=== PATIENT | male | born 1990 | race Caucasian/White ===

== ENCOUNTER 2017-08-27 05:27 | Emergency (ER) | payer MEDICAID ==
[~2017-08-27] VITALS: Ht 172.7 cm; Wt 75.0 kg
[~2017-08-27 05:27] MED LIST: ALBU8.5H4 IH; CEPH500C5 PO; HYDR30CR79 TP; IBUP-1985 PO; NAPR-56 PO; ONDA8TAB9 PO
[2017-08-27 05:52] VITALS: BP 138/88
== END 2017-08-27 05:55 ==
LOC: ER 05:27
DX: S01.81XA Laceration without foreign body of other part of head, initial encounter (principal); S31.114A Laceration without foreign body of abdominal wall, left lower quadrant without penetration into peritoneal cavity, initial encounter; S41.111A Laceration without foreign body of right upper arm, initial encounter; F15.129 Other stimulant abuse with intoxication, unspecified; F12.10 Cannabis abuse, uncomplicated; Z60.2 Problems related to living alone; X58.XXXA Exposure to other specified factors, initial encounter; Y93.89 Activity, other specified; Y92.89 Other specified places as the place of occurrence of the external cause; Y99.8 Other external cause status
CPT/HCPCS: 99283; A6255

== ENCOUNTER 2018-08-05 13:26 | Emergency (ER) | payer MEDICAID ==
[~2018-08-05] VITALS: Ht 172.7 cm; Wt 81.8 kg
[~2018-08-05 13:26] MED LIST changes: -CEPH500C5 PO; +IBUP-1986 PO
[2018-08-05 13:41] VITALS: BP 121/58
[2018-08-05] MEDS ORDERED: METH-360 PO (14:18)
[2018-08-05] MEDS ORDERED: IBUP-1985 PO (14:18)
[2018-08-05] MEDS ORDERED: orphenadrine citrate 60mg/2ml inj. IM ONE (14:20)
[2018-08-05] MEDS ORDERED: ketorolac tromethamine 15mg/ml inj. IM ONE (14:20)
== END 2018-08-05 14:39 | disposition home or self-care (01) ==
LOC: ER 13:26
DX: M54.5 Low back pain (principal); F12.90 Cannabis use, unspecified, uncomplicated; F15.90 Other stimulant use, unspecified, uncomplicated; Z79.899 Other long term (current) drug therapy; Z56.0 Unemployment, unspecified; X50.9XXA Other and unspecified overexertion or strenuous movements or postures, initial encounter; Y93.H2 Activity, gardening and landscaping; Y92.096 Garden or yard of other non-institutional residence as the place of occurrence of the external cause; Y99.8 Other external cause status
CPT/HCPCS: 96372; 99283; J1885; J2360

== ENCOUNTER 2019-05-12 12:33 | Emergency (ER) | payer MEDICAID ==
[~2019-05-12] VITALS: Ht 172.7 cm; Wt 61.0 kg
[~2019-05-12 12:33] MED LIST changes: +METH-360 PO
[2019-05-12] MEDS ORDERED: ibuprofen tablet 400 MG TABLET PO ONE (15:30)
[2019-05-12 16:26] VITALS: BP 111/65
== END 2019-05-12 16:32 | disposition home or self-care (01) ==
LOC: ER 12:34
DX: M25.511 Pain in right shoulder (principal); F32.9 Major depressive disorder, single episode, unspecified; F41.9 Anxiety disorder, unspecified; F12.10 Cannabis abuse, uncomplicated; F15.10 Other stimulant abuse, uncomplicated; Z86.2 Personal history of diseases of the blood and blood-forming organs and certain disorders involving the immune mechanism; Z79.899 Other long term (current) drug therapy
CPT/HCPCS: 73030; 99283

== ENCOUNTER 2020-02-16 09:59 | Emergency (ER) | payer MEDICAID ==
[~2020-02-16] VITALS: Ht 172.7 cm; Wt 62.1 kg
[2020-02-16 10:03] VITALS: BP 102/58
[2020-02-16] MEDS ORDERED: azithromycin 250mg tablet PO ONE (11:15)
[2020-02-16] MEDS ORDERED: CefTRIAXone 250MG IM Kit w/LIDOcaine IM ONE (11:15)
== END 2020-02-16 11:42 | disposition home or self-care (01) ==
LOC: ER 10:00
DX: Z11.3 Encounter for screening for infections with a predominantly sexual mode of transmission (principal); R30.0 Dysuria; F41.9 Anxiety disorder, unspecified; F32.9 Major depressive disorder, single episode, unspecified; F12.90 Cannabis use, unspecified, uncomplicated; F15.90 Other stimulant use, unspecified, uncomplicated; Z86.2 Personal history of diseases of the blood and blood-forming organs and certain disorders involving the immune mechanism; Z72.89 Other problems related to lifestyle; Z56.0 Unemployment, unspecified; Z79.899 Other long term (current) drug therapy
CPT/HCPCS: 36415; 87491; 87591; 96372; 99283; J0696

== ENCOUNTER 2020-07-13 10:55 | Emergency (ER) | payer MEDICAID, OTHER ==
[~2020-07-13] VITALS: Ht 172.7 cm; Wt 61.4 kg
[2020-07-13 11:00] VITALS: BP 123/75
== END 2020-07-13 11:45 | disposition home or self-care (01) ==
LOC: ER 10:55
DX: B20 Human immunodeficiency virus [HIV] disease (principal); F41.9 Anxiety disorder, unspecified; F32.9 Major depressive disorder, single episode, unspecified; F12.90 Cannabis use, unspecified, uncomplicated; F15.90 Other stimulant use, unspecified, uncomplicated; Z86.2 Personal history of diseases of the blood and blood-forming organs and certain disorders involving the immune mechanism; Z72.89 Other problems related to lifestyle; Z56.0 Unemployment, unspecified; Z79.899 Other long term (current) drug therapy
CPT/HCPCS: 99281

== ENCOUNTER 2020-10-12 07:53 | Emergency (ER) | payer SELFPAY ==
[~2020-10-12] VITALS: Ht 172.7 cm; Wt 72.7 kg
[2020-10-12 08:23] VITALS: BP 112/78
== END 2020-10-12 08:26 ==
LOC: ER 07:54
DX: S20.211A Contusion of right front wall of thorax, initial encounter (principal); F12.90 Cannabis use, unspecified, uncomplicated; F15.90 Other stimulant use, unspecified, uncomplicated; F41.9 Anxiety disorder, unspecified; F32.9 Major depressive disorder, single episode, unspecified; Z86.2 Personal history of diseases of the blood and blood-forming organs and certain disorders involving the immune mechanism; Z72.89 Other problems related to lifestyle; Z56.0 Unemployment, unspecified; Z79.899 Other long term (current) drug therapy; W33.01XA Accidental discharge of shotgun, initial encounter; Y93.89 Activity, other specified; Y92.89 Other specified places as the place of occurrence of the external cause; Y99.8 Other external cause status
CPT/HCPCS: 71045; 93005; 99283

== ENCOUNTER 2020-12-16 06:50 | Emergency (ER) | payer MEDICAID ==
[~2020-12-16] VITALS: Ht 172.7 cm; Wt 59.1 kg
[2020-12-16] MEDS ORDERED: clindamycin 600mg/D5W 50ml 50 ML IV ONE (07:50)
[2020-12-16] MEDS ORDERED: ketorolac trometh. 30mg/ml inj. IV ONE (07:50)
[2020-12-16] MEDS ORDERED: TETanus/Pertussis (Acell)/Diphther VAC/PF (Tdap-Adult) 0.5ml syringe IMVAC ONE (07:50)
[2020-12-16] MEDS ORDERED: normal saline 1000ml 1,000 ML IV ONE (07:50)
[2020-12-16] MEDS ORDERED: ondansetron/PF 4mg/2ml inj IV ONE (07:55)
[2020-12-16] MEDS ORDERED: acetaminophen 325mg tablet PO ONE (07:55)
[2020-12-16 08:16] LABS: BASOPHILS # (AUTO) 0.1 X10'3 (0-0.2); BASOPHILS % (AUTO) 0.6 % (0-1); EOSINOPHILS % (AUTO) 0.3 % (0-6); HEMATOCRIT 29.6 % (42.0-52.0); HEMOGLOBIN 9.5 g/dl (14.0-17.9); LYMPHOCYTES # (AUTO) 1.7 X10'3 (1.1-4.8); LYMPHOCYTES % (AUTO) 14.1 % (21-51); MEAN CORPUSCULAR HEMOGLOBIN 20.2 PG (27.0-31.0); MEAN CORPUSCULAR HGB CONC 32.2 g/dL (33.0-36.5); MEAN CORPUSCULAR VOLUME 62.9 FL (78-98); MEAN PLATELET VOLUME 8.2 FL (7.4-10.4); MONOCYTES # (AUTO) 0.9 X10'3 (0-0.9); MONOCYTES % (AUTO) 7.1 % (2-12); NEUTROPHILS # (AUTO) 9.7 X10'3 (1.8-7.7); NEUTROPHILS % (AUTO) 77.9 % (42-75); PLATELET COUNT 356 X10'3 (140-440); RED CELL DISTRIBUTION WIDTH 16.4 % (11.5-14.5); WHITE BLOOD COUNT 12.4 X10'3 (4.5-11.0)
[2020-12-16 08:30] LABS: ALANINE AMINOTRANSFERASE 39 U/L (12-78); ALBUMIN 3.8 G/DL (3.4-5.0); ALKALINE PHOSPHATASE 83 IU/L (46-116); ANION GAP 10 (8-16); ASPARTATE AMINO TRANSFERASE 35 U/L (10-37); BLOOD UREA NITROGEN 13 MG/DL (7-18); BUN/CREATININE RATIO 17.1 (5.4-32.0); CALCIUM 8.5 MG/DL (8.5-10.1); CHLORIDE 100 MMOL/L (99-107); CREATININE 0.76 MG/DL (0.60-1.10); GLUCOSE 72 MG/DL (70-104); POTASSIUM 3.7 MMOL/L (3.5-5.1); SODIUM 139 MMOL/L (135-145); TOTAL CARBON DIOXIDE 29.1 MMOL/L (24-32); TOTAL PROTEIN 7.8 G/DL (6.4-8.2); eGFR > 90 ML/MIN
[2020-12-16 08:46] LABS: PLATELET ESTIMATE NORMAL
[2020-12-16 08:48] LABS: ANISOCYTOSIS 1+; ELLIPTOCYTES FEW; MICROCYTOSIS 2+; STOMATOCYTES FEW; TARGET CELLS 1+; TEAR DROP CELLS 2+
[2020-12-16] MEDS ORDERED: DOXYCYCLINE 100MG CAPSULE PO STA (08:56)
[2020-12-16] MEDS ORDERED: ONDA4TAB6 PO (08:59)
[2020-12-16] MEDS ORDERED: CLIN300C54 PO (08:59)
[2020-12-16] MEDS ORDERED: DOXY100C77 PO (08:59)
[2020-12-16 09:18] VITALS: BP 107/80
== END 2020-12-16 09:20 | disposition home or self-care (01) ==
LOC: ER 06:50
DX: L03.113 Cellulitis of right upper limb (principal); F41.9 Anxiety disorder, unspecified; F32.9 Major depressive disorder, single episode, unspecified; F12.10 Cannabis abuse, uncomplicated; F15.10 Other stimulant abuse, uncomplicated; D64.9 Anemia, unspecified; Z79.899 Other long term (current) drug therapy; Z56.0 Unemployment, unspecified
CPT/HCPCS: 36415; 71045; 80053; 83605; 84145; 85008; 85025; 87040; 90471; 90715; 96365; 96375; 99284; J1885; J2405; J7030; J3490

== ENCOUNTER 2021-07-18 20:05 | Emergency (ER) | payer MEDICAID ==
[~2021-07-18] VITALS: Ht 172.7 cm; Wt 68.0 kg
[~2021-07-18 20:05] MED LIST changes: +ONDA4TAB6 PO
[2021-07-18 20:25] VITALS: BP 113/62
[2021-07-19] MEDS ORDERED: DOXYCYCLINE 100MG CAPSULE PO STA (00:49)
[2021-07-19] MEDS ORDERED: rifampin 300mg capsule PO SCH (00:50)
[2021-07-19] MEDS ORDERED: rifampin 300mg capsule PO ONE (00:50)
[2021-07-19] MEDS ORDERED: DOXY-1 PO (00:51)
== END 2021-07-19 02:15 | disposition home or self-care (01) ==
LOC: ER 20:05
DX: L03.116 Cellulitis of left lower limb (principal); M79.672 Pain in left foot; F15.10 Other stimulant abuse, uncomplicated; F41.9 Anxiety disorder, unspecified; F32.A Depression, unspecified; F17.200 Nicotine dependence, unspecified, uncomplicated; F12.90 Cannabis use, unspecified, uncomplicated; Z86.2 Personal history of diseases of the blood and blood-forming organs and certain disorders involving the immune mechanism; Z72.89 Other problems related to lifestyle; Z56.0 Unemployment, unspecified; Z79.2 Long term (current) use of antibiotics; Z79.899 Other long term (current) drug therapy
CPT/HCPCS: 99283

== ENCOUNTER 2021-12-11 02:24 | Emergency (ER) | payer MEDICAID ==
[~2021-12-11] VITALS: Ht 172.7 cm; Wt 61.4 kg
[2021-12-11 02:31] VITALS: BP 126/81
[2021-12-11] MEDS ORDERED: IBUP-1984 PO (02:54)
[2021-12-11] MEDS ORDERED: AMOX500C2 PO (02:54)
== END 2021-12-11 02:59 | disposition home or self-care (01) ==
LOC: ER 02:26
DX: K02.9 Dental caries, unspecified (principal); F12.90 Cannabis use, unspecified, uncomplicated; F15.20 Other stimulant dependence, uncomplicated; Z56.0 Unemployment, unspecified
CPT/HCPCS: 99283

== ENCOUNTER 2022-07-07 03:36 | Emergency (ER) | payer MEDICAID ==
[~2022-07-07] VITALS: Ht 172.7 cm; Wt 68.2 kg
[2022-07-07 03:44] VITALS: BP 125/88
[2022-07-07] MEDS ORDERED: LIDOCAINE 2% (20mg/ml) w/EPINEPHRINE 1:200,000-PF 10 ML inj. SQ ONE (03:55)
[2022-07-07] MEDS ORDERED: sulfamethoxazole/trimethoprim DS (800/160mg) tablet PO ONE (03:55)
[2022-07-07] MEDS ORDERED: ketorolac trometh inj. 60 MG/2 ML VIAL IM ONE (03:55)
[2022-07-07] MEDS ORDERED: LIDOCAINE 2%/EPI 1:100,000 inj. Multi-dose 20 ML VIAL SQ ONE (04:10)
[2022-07-07] MEDS ORDERED: TRAM1TAB7 PO (04:46)
[2022-07-07] MEDS ORDERED: SULF1TAB49 PO (04:46)
== END 2022-07-07 05:08 | disposition home or self-care (01) ==
LOC: ER 03:37
DX: L72.3 Sebaceous cyst (principal); F31.9 Bipolar disorder, unspecified; F17.200 Nicotine dependence, unspecified, uncomplicated; F12.10 Cannabis abuse, uncomplicated; F15.10 Other stimulant abuse, uncomplicated; Z79.899 Other long term (current) drug therapy
CPT/HCPCS: 10060; 96372; 99283; J1885; J7030

== ENCOUNTER 2023-06-04 19:16 | Emergency (ER) | payer MEDICAID ==
[~2023-06-04] VITALS: Ht 172.7 cm; Wt 65.0 kg
[2023-06-04 19:30] VITALS: BP 144/80; PULSE 90; RESP 18; TEMP 98.4; O2SAT 99
[2023-06-04] MEDS ORDERED: NAPR-56 PO (19:34)
[2023-06-04] MEDS ORDERED: DOXY-1 PO (19:34)
== END 2023-06-04 19:38 | disposition home or self-care (01) ==
LOC: ER 19:17
DX: K04.7 Periapical abscess without sinus (principal); F12.90 Cannabis use, unspecified, uncomplicated; F15.90 Other stimulant use, unspecified, uncomplicated; Z79.899 Other long term (current) drug therapy; Z79.1 Long term (current) use of non-steroidal anti-inflammatories (NSAID)
CPT/HCPCS: 99283